=== PATIENT | female | born 1970 | race African-American/Black ===

== ENCOUNTER 2023-03-21 07:22 | Outpatient (CLI) | payer BC | END 2023-03-21 07:23 | disposition home or self-care (01) | LOC: CSHULT 07:22 | PROVIDERS: ATTEND Family Medicine | DX: R74.8 Abnormal levels of other serum enzymes (principal); Z90.49 Acquired absence of other specified parts of digestive tract | CPT/HCPCS: 76700 ==

== ENCOUNTER 2023-03-22 15:08 | Outpatient (CLI) | payer BC | END 2023-03-22 15:09 | disposition home or self-care (01) | LOC: CSHMAMMO 15:08 | PROVIDERS: ATTEND Family Medicine | DX: Z12.31 Encounter for screening mammogram for malignant neoplasm of breast (principal); Z80.3 Family history of malignant neoplasm of breast | CPT/HCPCS: 77063; 77067 ==